=== PATIENT | male | born 1940 | race Caucasian/White ===

== ENCOUNTER 2021-12-29 06:51 | Day surgery (SDC) | payer MEDICARE, OTHER, SELFPAY ==
[2021-12-23 13:41] VITALS: BMI 31.8
--- NOTE | 2021-12-26 09:07 | MHC.SHP ---
Pre-Procedural Eval Section A Date of Service: 12/26/21 The patient is an INPATIENT: No Changes since office visit: No Cold of Flu in the past 2 weeks, No New Medical Problems, No Changes in Medication and No Patient answered all questions The History & Physical has been completed within 30 days and I have reviewed it.: Yes Section B Chief Complaint: cataract Allergies: Allergies Allergy/AdvReac Type Severity Reaction Status Date / Time acetaminophen [From Percocet] Allergy Intermediate fever, Verified 12/23/21 13:39 abnormal BP, chills oxycodone [From Percocet] Allergy Intermediate fever, Verified 12/23/21 13:39 abnormal BP, chills hydrochlorothiazide AdvReac Intermediate hyponatremi Verified 12/23/21 13:39 a Plan Diagnosis/Plan: Unchanged I have reviewed the history and physical and performed a pertinent physical examination on my patient. No changes have occurred unless specified.
--- NOTE | 2021-12-26 09:42 | P.CONAN_ITS ---
Documented by User: Roselia Rowell NP 12/26/21 09:45 HPI - Anesthesia Eval Consult details Narrative: 81yo M for Right Cataract Extraction IOL Insertion PCP cleared No previous cataract on record Xarelto for afib PMFSH Past Medical History Medical History Atrial fibrillation BPH (benign prostatic hyperplasia) CAD (coronary artery disease) Elevated cholesterol GERD (gastroesophageal reflux disease) HTN (hypertension) Hypothyroid Meniere disease Microcytic anemia Osteoarthritis Peripheral neuropathy Renal cell cancer Thrombocytopenia Thyroid cancer Surgical History Surgical History H/O colonoscopy History of esophagogastroduodenoscopy (EGD) History of laryngoscopy History of left nephrectomy History of lobectomy of thyroid Hx of heart artery stent Hx of left inguinal hernia repair Hx of right inguinal hernia repair Social History Social History Patient Tobacco Use Status: Former Tobacco user Quit Date: years and years ago Tobacco use type: Cigarette Use of substances other than those prescribed or required for medical reasons: No Are you DNR?: No Advance Directives: No Advance Directives Information Provided: Yes Meds Allergies Allergy/AdvReac Type Severity Reaction Status Date / Time oxycodone [From Percocet] Allergy Intermediate fever, Verified 12/23/21 13:39 abnormal BP, chills hydrochlorothiazide AdvReac Intermediate hyponatremi Verified 12/23/21 13:39 a Home Medications Medication Instructions Recorded Confirmed Last Taken Type amlodipine 10 mg tablet 1 tab PO DAILY 12/23/21 12/23/21 Unknown History atorvastatin 10 mg tablet 1 tab PO DAILY 12/23/21 12/23/21 Unknown History carvedilol 25 mg tablet 1 tab PO BID 12/23/21 12/23/21 Unknown History doxazosin 4 mg tablet 1 tab PO DAILY 12/23/21 12/23/21 Unknown History finasteride 5 mg tablet 1 tab PO DAILY 12/23/21 12/23/21 Unknown History furosemide 20 mg tablet 1 tab PO DAILY 12/23/21 12/23/21 Unknown History gabapentin 300 mg capsule 1 cap PO BEDTIME 12/23/21 12/23/21 Unknown History levothyroxine 125 mcg tablet 1 tab PO DAILY 12/23/21 12/23/21 Unknown History lisinopril 40 mg tablet 1 tab PO DAILY 12/23/21 12/23/21 Unknown History pantoprazole 20 mg tablet,delayed 1 tab PO DAILY 12/23/21 12/23/21 Unknown History release rivaroxaban 20 mg tablet (Xarelto) 1 tab PO DAILY 12/23/21 12/23/21 Unknown History Exam Exam Date and Time: December 26, 2021 0942 Height,Weight and Vital Signs: Height 5 ft 10.59 in Weight 102.5 kg Assessment and Plan Assessment Anesthesia Assessment: Chart Reviewed Documented by User: Deidre العراقي MD 12/29/21 08:36 HPI - Anesthesia Eval Consult details Narrative: 81yo M for Right Cataract Extraction IOL Insertion PCP cleared No previous cataract on record Xarelto for afib. Last dose 12/28/21 PMFSH Active Problems Active Problems: Denies SEBASTIEN ?H/o Thrombocytopenia-no labs available. Patient not aware of diagnosis- no nose bleeds, bleeding with brushing teeth, prolonged bleeding after cuts or surgeries. Called PCP's office. 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 Past Medical History Medical History Atrial fibrillation BPH (benign prostatic hyperplasia) CAD (coronary artery disease) Elevated cholesterol GERD (gastroesophageal reflux disease) HTN (hypertension) Hypothyroid Meniere disease Microcytic anemia Osteoarthritis Peripheral neuropathy Renal cell cancer Thrombocytopenia Thyroid cancer Family History Family history of problems with anesthesia: No Surgical History Surgical History H/O colonoscopy History of esophagogastroduodenoscopy (EGD) History of laryngoscopy History of left nephrectomy History of lobectomy of thyroid Hx of heart artery stent Hx of left inguinal hernia repair Hx of right inguinal hernia repair History of Problems with Anesthesia: No Social History Social History Patient Tobacco Use Status: Former Tobacco user Quit Date: years and years ago Tobacco use type: Cigarette Use of substances other than those prescribed or required for medical reasons: No Are you DNR?: No Advance Directives: No Advance Directives Information Provided: Yes Meds Allergies Allergy/AdvReac Type Severity Reaction Status Date / Time oxycodone [From Percocet] Allergy Intermediate fever, Verified 12/23/21 13:39 abnormal BP, chills hydrochlorothiazide AdvReac Intermediate hyponatremi Verified 12/23/21 13:39 a Home Medications Medication Instructions Recorded Confirmed Last Taken Type amlodipine 10 mg tablet 1 tab PO DAILY 12/23/21 12/23/21 Unknown History atorvastatin 10 mg tablet 1 tab PO DAILY 12/23/21 12/23/21 Unknown History carvedilol 25 mg tablet 1 tab PO BID 12/23/21 12/23/21 Unknown History doxazosin 4 mg tablet 1 tab PO DAILY 12/23/21 12/23/21 Unknown History finasteride 5 mg tablet 1 tab PO DAILY 12/23/21 12/23/21 Unknown History furosemide 20 mg tablet 1 tab PO DAILY 12/23/21 12/23/21 Unknown History gabapentin 300 mg capsule 1 cap PO BEDTIME 12/23/21 12/23/21 Unknown History levothyroxine 125 mcg tablet 1 tab PO DAILY 12/23/21 12/23/21 Unknown History lisinopril 40 mg tablet 1 tab PO DAILY 12/23/21 12/23/21 Unknown History pantoprazole 20 mg tablet,delayed 1 tab PO DAILY 12/23/21 12/23/21 Unknown History release rivaroxaban 20 mg tablet (Xarelto) 1 tab PO DAILY 12/23/21 12/23/21 Unknown History Exam Height,Weight and Vital Signs: Height 5 ft 10.59 in Weight 102.5 kg Vital Signs Temp Pulse Resp BP Pulse Ox O2 Del Method 12/29/21 08:13 98.2 F 58 18 127/79 96 Room Air 12/29/21 08:04 98.2 F 58 18 127/79 96 Room Air Airway Mallampati Class: II TM Dist: >3cm Neck ROM: Full Partial: Upper and Lower Heart: RRR Lungs: CTAB Assessment and Plan Assessment Anesthesia Assessment: Anesthesia Plan Discussed Final Anesthetic Review Family History of Problems with Anesthesia: No History of Problems with Anesthesia: No NPO: Yes ASA Class: III Final Preanesthetic Review: No Changes in Pt Med Stat, Meds/Allgs Chart Reviewed, Consent Obtained/Reviewed and Anes Risks/Benef Reviewed Patient Risk: Intermediate Procedure Risk: Low Assessment/Block/Sedation in SS: Assess/Block/Sedation-SS Anesthetic Plan Anesthetic Plan: MAC: Disposition: Standard PACU
[2021-12-29 07:57] VITALS: BMI 30.3
[2021-12-29 08:04] VITALS: BP 127/79; PULSE 58; RESP 18; TEMP 36.8; O2SAT 96
[2021-12-29 08:13] VITALS: BP 127/79; PULSE 58; RESP 18; TEMP 36.8; O2SAT 96
[2021-12-29] MEDS: Lactated Ringers 500 ML 50 ML IV (08:24)
[2021-12-29] MEDS: Phenylephrine HCL 2.5% Oph SoL 2 ML BOTTLE 1 DROP EYE-RIGHT ×3 (08:25→08:30)
[2021-12-29] MEDS: Tetracaine HCl/PF 0.5% Oph Sol 4 ML DROPS 1 DROP EYE-RIGHT (08:25)
[2021-12-29] MEDS: Cyclopentolate 1 % Ophth Sol 2 ML DRPBTL 1 DROP EYE-RIGHT ×3 (08:26→08:30)
[2021-12-29] MEDS: Tropicamide 1 % Ophth Sol 3 ML BTL 1 DROP EYE-RIGHT ×3 (08:26→08:30)
--- NOTE | 2021-12-29 09:05 | HO.PNOPHT ---
Ophthalmology Procedure Procedure Date of Service: 12/29/21 Ophthalmology Viscoelastic: Healon Duet Dual Pack Pro Ophthalmology Lenses: TECNIS [id number] (19.5) Procedure Notes: PREOPERATIVE DIAGNOSIS: Decreased visual acuity right eye secondary to cataract POSTOPERATIVE DIAGNOSIS: Same PROCEDURE: Right cataract extraction with intraocular lens insertion SURGEON: Nik Choudhury M.D. ANESTHESIA: Topical/MAC ESTIMATED BLOOD LOSS: None COMPLICATIONS: None After obtaining informed consent, the patient was brought to the operating room suite and placed in the supine position. After adequate sedation per anesthesia, topical drops of Tetracaine were given to the right eye. The eye was then prepped and draped in the usual sterile fashion. The operating room microscope was then positioned over the operative eye and a lid speculum placed. A paracentesis was created. Viscoelastic was then instilled into the anterior chamber. A three plane incision was then created temporally, utilizing a 2.85 mm keratome. Capsulotomy forceps were then utilized to create a circular tear capsulotomy. Hydrodissection and hydrodelineation were carried out until adequate mobilization of the nucleus occurred. Phacoemulsification was then utilized to remove the dense central nucleus followed by removal of the cortical material utilizing the automated aspiration irrigation unit. Viscoelastic was instilled into the posterior capsular bag followed by placement of a posterior chamber intraocular lens without difficulty. The residual Viscoelastic was then removed utilizing the automated IA machine. The wound was checked and found to be watertight. The patient tolerated the procedure well and the lid speculum was removed. Intracameral injection of Vigamox 0.1 mL followed by a subtenon injection of Kenalog-40 0.2 mL were administered. The patient will be seen in the a.m.
[2021-12-29 09:28] VITALS: BP 105/84; PULSE 62; RESP 18; TEMP 36.2; O2SAT 97
== END 2021-12-29 09:38 | disposition home or self-care (01) ==
PROVIDERS: PCP Family Medicine; Visit Provider Ophthalmology
PROC: (CPT 66985; principal; 2021-12-29 09:10)
DX: H25.11 Age-related nuclear cataract, right eye (principal); H52.4 Presbyopia; H35.09 Other intraretinal microvascular abnormalities; I10 Essential (primary) hypertension; E03.9 Hypothyroidism, unspecified; I48.91 Unspecified atrial fibrillation; Z79.01 Long term (current) use of anticoagulants; Z79.899 Other long term (current) drug therapy; Z88.8 Allergy status to other drugs, medicaments and biological substances; Z85.528 Personal history of other malignant neoplasm of kidney; Z85.850 Personal history of malignant neoplasm of thyroid; Z87.891 Personal history of nicotine dependence
CPT/HCPCS: 66984; J2250; J3010; J3300; V2632

== ENCOUNTER 2022-01-12 07:30 | Day surgery (SDC) | payer MEDICARE, OTHER, SELFPAY ==
[2021-12-23 13:43] VITALS: BMI 31.8
--- NOTE | 2022-01-08 15:22 | MHC.SHP ---
Pre-Procedural Eval Section A Date of Service: 01/08/22 The patient is an INPATIENT: No Changes since office visit: No Cold of Flu in the past 2 weeks, No New Medical Problems, No Changes in Medication and No Patient answered all questions The History & Physical has been completed within 30 days and I have reviewed it.: Yes Section B Chief Complaint: cataract Allergies: Allergies Allergy/AdvReac Type Severity Reaction Status Date / Time oxycodone [From Percocet] Allergy Intermediate fever, Verified 12/23/21 13:39 abnormal BP, chills hydrochlorothiazide AdvReac Intermediate hyponatremi Verified 12/23/21 13:39 a Plan Diagnosis/Plan: Unchanged I have reviewed the history and physical and performed a pertinent physical examination on my patient. No changes have occurred unless specified.
--- NOTE | 2022-01-09 08:40 | P.CONAN_ITS ---
Documented by User: Roselia Rowell NP 01/09/22 08:41 HPI - Anesthesia Eval Consult details Narrative: 81yo M for Left Cataract Extraction IOL Insertion PCP cleared Right eye 12/29 with TIVA: Fent 50, Midaz 0.5 Xarelto for afib PMFSH Past Medical History Medical History Atrial fibrillation BPH (benign prostatic hyperplasia) CAD (coronary artery disease) Elevated cholesterol GERD (gastroesophageal reflux disease) HTN (hypertension) Hypothyroid Meniere disease Microcytic anemia Osteoarthritis Peripheral neuropathy Renal cell cancer Thrombocytopenia Thyroid cancer Family History Family history of problems with anesthesia: No Surgical History Surgical History H/O colonoscopy History of esophagogastroduodenoscopy (EGD) History of laryngoscopy History of left nephrectomy History of lobectomy of thyroid Hx of heart artery stent Hx of left inguinal hernia repair Hx of right inguinal hernia repair History of Problems with Anesthesia: No Social History Social History Patient Tobacco Use Status: Former Tobacco user Quit Date: 1979 Tobacco use type: Cigarette Use of substances other than those prescribed or required for medical reasons: No Are you DNR?: No Advance Directives: No Advance Directives Information Provided: Yes Meds Allergies Allergy/AdvReac Type Severity Reaction Status Date / Time oxycodone [From Percocet] Allergy Intermediate fever, Verified 01/12/22 08:52 abnormal BP, chills hydrochlorothiazide AdvReac Intermediate hyponatremi Verified 01/12/22 08:52 a Home Medications Medication Instructions Recorded Confirmed Last Taken Type amlodipine 10 mg tablet 1 tab PO DAILY 12/23/21 12/23/21 01/12/22 06:00 History atorvastatin 10 mg tablet 1 tab PO DAILY 12/23/21 12/23/21 Unknown History carvedilol 25 mg tablet 1 tab PO BID 12/23/21 12/23/21 01/12/22 06:00 History doxazosin 4 mg tablet 1 tab PO DAILY 12/23/21 12/23/21 01/12/22 06:00 History finasteride 5 mg tablet 1 tab PO DAILY 12/23/21 12/23/21 Unknown History furosemide 20 mg tablet 1 tab PO DAILY 12/23/21 12/23/21 Unknown History gabapentin 300 mg capsule 1 cap PO BEDTIME 12/23/21 12/23/21 Unknown History levothyroxine 125 mcg tablet 1 tab PO DAILY 12/23/21 12/23/21 01/12/22 06:00 History lisinopril 40 mg tablet 1 tab PO DAILY 12/23/21 12/23/21 Unknown History pantoprazole 20 mg tablet,delayed 1 tab PO DAILY 12/23/21 12/23/21 01/12/22 06:00 History release rivaroxaban 20 mg tablet (Xarelto) 1 tab PO DAILY 12/23/21 12/23/21 12/28/21 History Exam Exam Date and Time: January 09, 2022 0840 Height,Weight and Vital Signs: Height 5 ft 10.59 in Weight 102.5 kg Assessment and Plan Assessment Anesthesia Assessment: Chart Reviewed Final Anesthetic Review Family History of Problems with Anesthesia: No History of Problems with Anesthesia: No Documented by User: Derrick Ivey MD 01/12/22 08:58 [facility] Past Medical History Medical History Atrial fibrillation BPH (benign prostatic hyperplasia) CAD (coronary artery disease) Elevated cholesterol GERD (gastroesophageal reflux disease) HTN (hypertension) Hypothyroid Meniere disease Microcytic anemia Osteoarthritis Peripheral neuropathy Renal cell cancer Thrombocytopenia Thyroid cancer Surgical History Surgical History H/O colonoscopy History of esophagogastroduodenoscopy (EGD) History of laryngoscopy History of left nephrectomy History of lobectomy of thyroid Hx of heart artery stent Hx of left inguinal hernia repair Hx of right inguinal hernia repair Social History Social History Patient Tobacco Use Status: Former Tobacco user Quit Date: 1979 Tobacco use type: Cigarette Use of substances other than those prescribed or required for medical reasons: No Are you DNR?: No Advance Directives: No Advance Directives Information Provided: Yes Meds Allergies Allergy/AdvReac Type Severity Reaction Status Date / Time oxycodone [From Percocet] Allergy Intermediate fever, Verified 01/12/22 08:52 abnormal BP, chills hydrochlorothiazide AdvReac Intermediate hyponatremi Verified 01/12/22 08:52 a Home Medications Medication Instructions Recorded Confirmed Last Taken Type amlodipine 10 mg tablet 1 tab PO DAILY 12/23/21 12/23/21 01/12/22 06:00 History atorvastatin 10 mg tablet 1 tab PO DAILY 12/23/21 12/23/21 Unknown History carvedilol 25 mg tablet 1 tab PO BID 12/23/21 12/23/21 01/12/22 06:00 History doxazosin 4 mg tablet 1 tab PO DAILY 12/23/21 12/23/21 01/12/22 06:00 History finasteride 5 mg tablet 1 tab PO DAILY 12/23/21 12/23/21 Unknown History furosemide 20 mg tablet 1 tab PO DAILY 12/23/21 12/23/21 Unknown History gabapentin 300 mg capsule 1 cap PO BEDTIME 12/23/21 12/23/21 Unknown History levothyroxine 125 mcg tablet 1 tab PO DAILY 12/23/21 12/23/21 01/12/22 06:00 History lisinopril 40 mg tablet 1 tab PO DAILY 12/23/21 12/23/21 Unknown History pantoprazole 20 mg tablet,delayed 1 tab PO DAILY 12/23/21 12/23/21 01/12/22 06:00 History release rivaroxaban 20 mg tablet (Xarelto) 1 tab PO DAILY 12/23/21 12/23/21 12/28/21 History Exam Airway Mallampati Class: II TM Dist: >3cm Neck ROM: Full Partial: Upper and Lower Loose/Missing/Broken Teeth: Yes Heart: irreg irreg s1s2 Lungs: cta b/l Assessment and Plan Assessment Anesthesia Assessment: Anesthesia Plan Discussed Final Anesthetic Review NPO: Yes ASA Class: III Final Preanesthetic Review: No Changes in Pt Med Stat, Meds/Allgs Chart Reviewed, Consent Obtained/Reviewed and Anes Risks/Benef Reviewed Patient Risk: Intermediate Procedure Risk: Low Anesthetic Plan Anesthetic Plan: MAC: and Agree w/ Assess. and Plan Disposition: Standard PACU
[2022-01-12 08:32] VITALS: BP 156/78; PULSE 61; RESP 16; TEMP 36.1; O2SAT 97
[2022-01-12] MEDS: Tetracaine HCl/PF 0.5% Oph Sol 4 ML DROPS 1 DROP EYE-LEFT (08:35)
[2022-01-12] MEDS: Cyclopentolate 1 % Ophth Sol 2 ML DRPBTL 1 DROP EYE-LEFT ×3 (08:37→08:48)
[2022-01-12] MEDS: Tropicamide 1 % Ophth Sol 3 ML BTL 1 DROP EYE-LEFT ×3 (08:39→08:49)
[2022-01-12] MEDS: Ketorolac Tromethamine 0.5% Op 5 ML DROPS 1 DROP EYE-LEFT ×3 (08:40→08:50)
[2022-01-12] MEDS: Lactated Ringers 500 ML 50 ML IV (08:41)
[2022-01-12] MEDS: Phenylephrine HCL 2.5% Oph SoL 2 ML BOTTLE 1 DROP EYE-LEFT ×3 (08:41→08:51)
--- NOTE | 2022-01-12 09:35 | HO.PNOPHT ---
Ophthalmology Procedure Procedure Date of Service: 01/12/22 Ophthalmology Viscoelastic: Healon Duet Dual Pack Pro Ophthalmology Lenses: TECFIORDALIZA [id number] (19.) Procedure Notes: PREOPERATIVE DIAGNOSIS: Decreased visual acuity left eye secondary to cataract POSTOPERATIVE DIAGNOSIS: Same PROCEDURE: Left cataract extraction with intraocular lens insertion Anterior Vitrectomy SURGEON: Nik Choudhury M.D. ANESTHESIA: Topical/MAC ESTIMATED BLOOD LOSS: None COMPLICATIONS: Capsular tear After obtaining informed consent, the patient was brought to the operation room suite and placed in the supine position. After adequate sedation per anesthesia, topical drops of Tetracaine were given to the left eye. The eye was then prepped and draped in the usual sterile fashion. The operating room microscope was then positioned over the operative eye and a lid speculum placed. A paracentesis was created. Viscoelastic was then instilled into the anterior chamber. A three plane incision was then created temporally, utilizing a 2.85 mm keratome. Capsulotomy forceps were then utilized to create a circular tear capsulotomy. Hydrodissection and hydrodelineation were carried out until adequate mobilization of the nucleus occurred. Phacoemulsification was then utilized to remove the dense central nucleus. A capsular tear was noted requiring an Anterior Vitrectomy. The PCIOL was placed in the sulcus. The PCILO dislodged while using the vitrector to remove the residuall viscoelastic. The PCIOL was retrieved from the dislocation into the posterior chamberbusing the capsular forceps and placed in the anterior chamber.\ A Malygin ring was used to dilate the pupil andthe PCIOL was repositioned into the sulcus. The residual Viscoat elastic was then removed utilizing the vitrector machine. The wound was check and found to be watertight. The patient tolerated the procedure well and the lid speculum was removed. Intracameral injection of Vigamox 0.1 mL followed by a subtenon injection of Kenalog-40 0.2 mL were administered. The patient will be seen in the a.m.
[2022-01-12 10:48] VITALS: BP 146/79; PULSE 68; RESP 18; TEMP 36.6; O2SAT 98
== END 2022-01-12 11:01 | disposition home or self-care (01) ==
PROVIDERS: PCP Family Medicine; Visit Provider Ophthalmology
PROC: (CPT 66985; principal; 2022-01-12 09:40)
DX: H25.12 Age-related nuclear cataract, left eye (principal); H59.212 Accidental puncture and laceration of left eye and adnexa during an ophthalmic procedure; H54.7 Unspecified visual loss; I10 Essential (primary) hypertension; E03.9 Hypothyroidism, unspecified; I48.19 Other persistent atrial fibrillation; Z79.01 Long term (current) use of anticoagulants; Z79.899 Other long term (current) drug therapy; Z88.8 Allergy status to other drugs, medicaments and biological substances; Z87.891 Personal history of nicotine dependence
CPT/HCPCS: 66982; J2250; J3300; V2632

== ENCOUNTER 2022-09-14 08:56 | Day surgery (SDC) | payer MEDICARE, OTHER, SELFPAY ==
[2022-09-07 13:29] VITALS: BMI 31.4
--- NOTE | 2022-09-11 08:17 | MHC.SHP ---
Pre-Procedural Eval Section A Date of Service: 09/11/22 The patient is an INPATIENT: No Changes since office visit: No Cold of Flu in the past 2 weeks, No New Medical Problems, No Changes in Medication and No Patient answered all questions The History & Physical has been completed within 30 days and I have reviewed it.: Yes Section B Chief Complaint: Unspecified disorder of iris and ciliary body Allergies: Allergies Allergy/AdvReac Type Severity Reaction Status Date / Time oxycodone [From Percocet] Allergy Intermediate fever, Verified 01/12/22 08:52 abnormal BP, chills hydrochlorothiazide AdvReac Intermediate hyponatremi Verified 01/12/22 08:52 a Plan Diagnosis/Plan: Unchanged I have reviewed the history and physical and performed a pertinent physical examination on my patient. No changes have occurred unless specified. Time Spent With Patient Time: Total time managing care of this patient today ____ minutes.
--- NOTE | 2022-09-11 09:52 | HO.ANESPROP2 ---
Documented by User: Roselia Rowell NP 09/11/22 09:53 HPI - Anesthesia Eval Consult details Narrative: 81yo M for Left Pupilloplasty Medically cleared No previous eye surgery Xarelto for afib PMFSH Past Medical History Medical History Atrial fibrillation BPH (benign prostatic hyperplasia) CAD (coronary artery disease) Elevated cholesterol GERD (gastroesophageal reflux disease) HTN (hypertension) Hypothyroid Meniere disease Microcytic anemia Osteoarthritis Peripheral neuropathy Renal cell cancer Thrombocytopenia Thyroid cancer Family History Family history of problems with anesthesia: No Surgical History Surgical History H/O colonoscopy History of esophagogastroduodenoscopy (EGD) History of laryngoscopy History of left nephrectomy History of lobectomy of thyroid Hx of cataract extraction Hx of heart artery stent Hx of left inguinal hernia repair Hx of right inguinal hernia repair History of Problems with Anesthesia: No Social History Social History Are you a primary pediatric critical care nurse to a significant other at home: No Do you presently have visiting nurse or other home services: No Patient Tobacco Use Status: Former Tobacco user Quit Date: Tobacco use type: Cigarette Use of substances other than those prescribed or required for medical reasons: No Have you been hit, kicked, punched, or otherwise hurt by someone within the past year? If so, by whom?: No Are you DNR?: Yes Advance Directives Information Provided: Yes (states has HCP & DNR forms) Advance Directives on File: No Recently lost weight without trying: No Eating poorly because of decreased appetite: No Nutrition Risks: Surgical patient >75years Poor oral hygiene: No (upper & lower partials) Meds Allergies Allergy/AdvReac Type Severity Reaction Status Date / Time oxycodone [From Percocet] Allergy Intermediate fever, Verified 01/12/22 08:52 abnormal BP, chills hydrochlorothiazide AdvReac Intermediate hyponatremi Verified 01/12/22 08:52 a Home Medications Medication Instructions Recorded Confirmed Last Taken Type amlodipine 10 mg tablet 1 tab PO DAILY 12/23/21 09/07/22 01/12/22 06:00 History atorvastatin 10 mg tablet 1 tab PO DAILY 12/23/21 09/07/22 Unknown History carvedilol 25 mg tablet 1 tab PO BID 12/23/21 09/07/22 01/12/22 06:00 History doxazosin 4 mg tablet 1 tab PO DAILY 12/23/21 09/07/22 01/12/22 06:00 History finasteride 5 mg tablet 1 tab PO DAILY 12/23/21 09/07/22 Unknown History furosemide 20 mg tablet 1 tab PO DAILY 12/23/21 09/07/22 Unknown History levothyroxine 125 mcg tablet 1 tab PO DAILY 12/23/21 09/07/22 01/12/22 06:00 History lisinopril 40 mg tablet 1 tab PO DAILY 12/23/21 09/07/22 Unknown History pantoprazole 20 mg tablet,delayed 1 tab PO DAILY 12/23/21 09/07/22 01/12/22 06:00 History release rivaroxaban 20 mg tablet (Xarelto) 1 tab PO QPM 12/23/21 09/07/22 12/28/21 History Exam Exam Date and Time: September 11, 2022 0952 Height,Weight and Vital Signs: Height 5 ft 11 in Weight 102.058 kg Assessment and Plan Assessment Anesthesia Assessment: Chart Reviewed Final Anesthetic Review Family History of Problems with Anesthesia: No History of Problems with Anesthesia: No Documented by User: Leyla Galindo MD 09/14/22 12:29 [facility] Past Medical History Medical History Atrial fibrillation BPH (benign prostatic hyperplasia) CAD (coronary artery disease) Elevated cholesterol GERD (gastroesophageal reflux disease) HTN (hypertension) Hypothyroid Meniere disease Microcytic anemia Osteoarthritis Peripheral neuropathy Renal cell cancer Thrombocytopenia Thyroid cancer Functional capacity: wheelchair bound Surgical History Surgical History H/O colonoscopy History of esophagogastroduodenoscopy (EGD) History of laryngoscopy History of left nephrectomy History of lobectomy of thyroid Hx of cataract extraction Hx of heart artery stent Hx of left inguinal hernia repair Hx of right inguinal hernia repair Social History Social History Are you a primary pediatric critical care nurse to a significant other at home: No Do you presently have visiting nurse or other home services: No Patient Tobacco Use Status: Former Tobacco user Quit Date: Tobacco use type: Cigarette Use of substances other than those prescribed or required for medical reasons: No Have you been hit, kicked, punched, or otherwise hurt by someone within the past year? If so, by whom?: No Are you DNR?: Yes Advance Directives Information Provided: Yes (states has HCP & DNR forms) Advance Directives on File: No Recently lost weight without trying: No Eating poorly because of decreased appetite: No Nutrition Risks: Surgical patient >75years Poor oral hygiene: No (upper & lower partials) Meds Allergies Allergy/AdvReac Type Severity Reaction Status Date / Time oxycodone [From Percocet] Allergy Intermediate fever, Verified 01/12/22 08:52 abnormal BP, chills hydrochlorothiazide AdvReac Intermediate hyponatremi Verified 01/12/22 08:52 a Home Medications Medication Instructions Recorded Confirmed Last Taken Type amlodipine 10 mg tablet 1 tab PO DAILY 12/23/21 09/07/22 01/12/22 06:00 History atorvastatin 10 mg tablet 1 tab PO DAILY 12/23/21 09/07/22 Unknown History carvedilol 25 mg tablet 1 tab PO BID 12/23/21 09/07/22 01/12/22 06:00 History doxazosin 4 mg tablet 1 tab PO DAILY 12/23/21 09/07/22 01/12/22 06:00 History finasteride 5 mg tablet 1 tab PO DAILY 12/23/21 09/07/22 Unknown History furosemide 20 mg tablet 1 tab PO DAILY 12/23/21 09/07/22 Unknown History levothyroxine 125 mcg tablet 1 tab PO DAILY 12/23/21 09/07/22 01/12/22 06:00 History lisinopril 40 mg tablet 1 tab PO DAILY 12/23/21 09/07/22 Unknown History pantoprazole 20 mg tablet,delayed 1 tab PO DAILY 12/23/21 09/07/22 01/12/22 06:00 History release rivaroxaban 20 mg tablet (Xarelto) 1 tab PO QPM 12/23/21 09/07/22 12/28/21 History Exam Airway Mallampati Class: III TM Dist: >3cm Neck ROM: Full Loose/Missing/Broken Teeth: No Heart: RRR Lungs: CTA Assessment and Plan Final Anesthetic Review NPO: Yes ASA Class: III Final Preanesthetic Review: Meds/Allgs Chart Reviewed, Consent Obtained/Reviewed and Anes Risks/Benef Reviewed Patient Risk: Intermediate Procedure Risk: Low Anesthetic Plan Anesthetic Plan: MAC: Disposition: Standard PACU
[2022-09-14] MEDS: Lactated Ringers 500 ML 50 ML IV (11:53)
[2022-09-14 12:14] VITALS: BP 131/77; PULSE 73; RESP 18; TEMP 36.7; O2SAT 96
[2022-09-14 13:31] VITALS: BP 134/66; PULSE 73; RESP 16; TEMP 36.4; O2SAT 98
--- NOTE | 2022-09-15 01:23 | OP_ITS ---
DATE OF SERVICE: 09/14/2022 SURGEON: Nik Choudhury MD PREOPERATIVE DIAGNOSIS: POSTOPERATIVE DIAGNOSIS: PROCEDURE PERFORMED: Left Pupilloplasty. ESTIMATED BLOOD LOSS: COMPLICATIONS:None ANESTHESIA: MAC with Topical ASSISTANTS: SPECIMENS: INDICATIONS FOR SURGERY: Glare from torn pupil. PROCEDURE IN DETAIL: After obtaining informed consent, the patient was prepped and draped in usual sterile fashion. Attention was directed to left eye where a lid speculum was placed followed by positioning the microscope. An injection of Kenalog was given 0.15 mL subconjunctivally followed by paracentesis superiorly and inferiorly. Keratome was then utilized to create a clear corneal incision. IOL was identified and manipulated to ensure it was centered well. Suture was then passed through the cornea to the pupillary margin that was disrupted superiorly and again through the pupillary margin inferiorly. The suture was then passed externally out of the cornea and tied to create a round pupil. A secondary suture was passed in an identical fashion. The wound was checked and found to be watertight. Vigamox 0.1 ml was injected intracarmeral. The patient tolerated the procedure and will be seen in followup. MD [place] Tong/MELLOL / [id number]
== END 2022-09-14 13:39 | disposition home or self-care (01) ==
LOC: HO.SSS 08:56
PROVIDERS: PCP Family Medicine; Visit Provider Ophthalmology
PROC: (CPT 66682; principal; 2022-09-14 12:50)
DX: H21.89 Other specified disorders of iris and ciliary body (principal); H53.71 Glare sensitivity; I10 Essential (primary) hypertension; E03.9 Hypothyroidism, unspecified; I48.91 Unspecified atrial fibrillation; D69.6 Thrombocytopenia, unspecified; I25.10 Atherosclerotic heart disease of native coronary artery without angina pectoris; Z95.5 Presence of coronary angioplasty implant and graft; Z79.01 Long term (current) use of anticoagulants; Z79.899 Other long term (current) drug therapy; Z88.8 Allergy status to other drugs, medicaments and biological substances; Z85.828 Personal history of other malignant neoplasm of skin; Z85.528 Personal history of other malignant neoplasm of kidney; Z85.850 Personal history of malignant neoplasm of thyroid; Z87.891 Personal history of nicotine dependence
CPT/HCPCS: 66682; J2250; J3010; J3301